=== PATIENT | female | born 1930 | race Caucasian/White ===

== ENCOUNTER 2019-11-17 12:35 | Outpatient (RCR) | payer MEDICARE, OTHER ==
[~2019-11-17] VITALS: Ht 160 cm; Wt 45.4 kg
[2019-11-19] MEDS ORDERED: Lidocaine 1% MPF 10mg/ml 5ml INJ ONE (17:00)
== END 2019-11-20 | disposition home or self-care (01) ==
LOC: WCC 12:35
DX: L89.114 Pressure ulcer of right upper back, stage 4 (principal); R64 Cachexia; M40.14 Other secondary kyphosis, thoracic region; I10 Essential (primary) hypertension; F32.9 Major depressive disorder, single episode, unspecified
CPT/HCPCS: 11043; 87070; 87181; 87205

== ENCOUNTER 2019-11-24 13:22 | Outpatient (RCR) | payer MEDICARE, OTHER ==
[~2019-11-24] VITALS: Ht 30.5 cm; Wt 0.5 kg
== END 2019-12-21 | disposition home or self-care (01) ==
LOC: WCC 13:22
DX: L89.114 Pressure ulcer of right upper back, stage 4 (principal); R64 Cachexia; M40.14 Other secondary kyphosis, thoracic region; I10 Essential (primary) hypertension; F32.9 Major depressive disorder, single episode, unspecified; Z79.899 Other long term (current) drug therapy
CPT/HCPCS: 11043; 97605

== ENCOUNTER 2019-12-01 10:51 | Outpatient (CLI) | payer MEDICARE, OTHER ==
[~2019-12-01] VITALS: Ht 147.3 cm; Wt 45.4 kg
[~2019-12-01 10:51] MED LIST: Heparin1,000 units/500ml Premix(Conc:2 units/ml) INJ PRN; Lidocaine 1% Plain 30 ml INJ PRN
--- NOTE | 2019-12-01 13:30 | NUR ---
RADIOLOGY NOTE: RIGHT UPPER EXTREMITY PICC PLACED.
--- NOTE | 2019-12-01 13:50 | Pre-Procedure Note/Attestation ---
Pre-Procedure Note/Attestation Complete Prior to Procedure Planned Procedure: not applicable Procedure Narrative: PICC Indications for Procedure Pre-Operative Diagnosis: osteomyelitis Attestation I attest that I discussed the nature of the procedure; its benefits; risks and complications; and alternatives (and the risks and benefits of such alternatives ), prior to the procedure, with the patient (or the patient's legal commercial representative). I attest that, if there was a reasonable possibility of needing a blood transfusion, the patient (or the patient's legal commercial representative) was given the [facility] standardized written summary, pursuant to the [place] Blood Safety Act ([place] Health and Safety Code # 1645, as amended). I attest that I re-evaluated the patient just prior to the surgery and that there has been no change in the patient's H&P, except as documented below: William Guzman MD Dec 01, 2019 13:50
--- NOTE | 2019-12-01 13:51 | Brief Operative Note ---
Immediate Post Operative Note Operative Note Pre-op Diagnosis: osteomyelitis Procedure: R arm midline Post-op Diagnosis: same as pre-op Findings: other - central venoocclusive disease, had to place mid line Surgeon: Negro Walton Anesthesia: local Specimen: none Complications: none Fluids: none Implant(s) used?: No William Walton MD Dec 01, 2019 13:51
--- NOTE | 2019-12-01 16:11 | Diagnostic Imaging Report ---
Indication: Open wound on right side of ribs, suspect osteomyelitis Technique: Axial, coronal, and sagittal STIR and T1 images obtained of the right ribs in the region of the open wound Comparison: none Findings: A marker zuluaga an open wound in the posterior inferior right chest wall. Exam is very limited, due to inherently limited spatial resolution as well as motion artifact. Areas of increased STIR signal are seen within the chest wall. These appear to be more likely surrounding rather than within the ribs, although this is difficult to state for certain. The ribs are insufficiently well delineated to assess whether any of the abnormal signal Impression: Very limited exam, as described. Unable to adequately assess for the presence of acute osteomyelitis adjacent to the open wound. There is some fluid in the area which appears to be extraosseous but this cannot be stated for certain. Recommend bone scan for further evaluation as this would be more sensitive and specific for the presence or absence of acute osteomyelitis. Plain radiographs of the affected area should also be obtained at the same time.
--- NOTE | 2019-12-02 09:04 | Diagnostic Imaging Report ---
Indications: Needs long-term IV access Technique: Ultrasound confirms patent compressible right brachial vein. Total sterile technique, including sterile probe cover and sterile gel, hat, mask, sterile gown, large sterile drape, and preparation with 2% chlorhexidine utilized. Local anesthesia with 1% lidocaine. Under real-time ultrasound guidance, puncture brachial vein using 21-gauge needle, documented and archived, passage 0.018 guidewire under direct fluoroscopy, which would only pass into the axilla and not beyond. 4 Nepalese peel-away sheath was placed, through which was passed a Kumpe catheter and a hydrophilic guidewire. Attempts made at crossing the axilla, unsuccessful. 4 [place] Bard dual-lumen power PICC cut to 50 cm. It was inserted through the peel-away sheath. Peel-away sheath and guidewire removed. Catheter fixed to the skin. Both catheter ports aspirated and flushed. Patient tolerated procedure well, without immediate complication. Digital radiograph documents satisfactory catheter tip position, at the level of the axillary vein. Total fluoroscopy time 123 seconds. 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 Therefore, catheter was cut short, and is suitable for use as a midline
== END 2019-12-01 12:51 | disposition home or self-care (01) ==
LOC: MRI 10:51
DX: M86.9 Osteomyelitis, unspecified (principal); B99.9 Unspecified infectious disease
CPT/HCPCS: 36569; 71550; 76937; J1644; J2001

== ENCOUNTER 2019-12-22 13:36 | Outpatient (RCR) | payer MEDICARE, OTHER | END 2020-01-20 | disposition home or self-care (01) | LOC: WCC 13:36 | DX: L89.114 Pressure ulcer of right upper back, stage 4 (principal); R64 Cachexia; M40.14 Other secondary kyphosis, thoracic region; I10 Essential (primary) hypertension; F64.9 Gender identity disorder, unspecified; Z79.899 Other long term (current) drug therapy | CPT/HCPCS: 11043; 97605 ==

== ENCOUNTER 2020-02-09 11:24 | Outpatient (RCR) | payer MEDICARE, OTHER | END 2020-02-20 | disposition home or self-care (01) | LOC: WCC 11:24 | DX: L89.114 Pressure ulcer of right upper back, stage 4 (principal); R64 Cachexia; M40.14 Other secondary kyphosis, thoracic region; I10 Essential (primary) hypertension; Z79.899 Other long term (current) drug therapy | CPT/HCPCS: 11043 ==

== ENCOUNTER 2020-02-23 11:09 | Outpatient (RCR) | payer MEDICARE, OTHER | END 2020-03-21 | disposition home or self-care (01) | LOC: WCC 11:09 | DX: L89.114 Pressure ulcer of right upper back, stage 4 (principal); L89.90 Pressure ulcer of unspecified site, unspecified stage; R64 Cachexia; L98.491 Non-pressure chronic ulcer of skin of other sites limited to breakdown of skin; M40.14 Other secondary kyphosis, thoracic region; I10 Essential (primary) hypertension; F64.9 Gender identity disorder, unspecified; Z79.899 Other long term (current) drug therapy | CPT/HCPCS: 11043 ==

== ENCOUNTER 2020-03-22 08:12 | Outpatient (RCR) | payer MEDICARE, OTHER | END 2020-04-21 | disposition home or self-care (01) | LOC: WCC 08:12 | DX: L89.114 Pressure ulcer of right upper back, stage 4 (principal); R64 Cachexia; M40.14 Other secondary kyphosis, thoracic region; Z79.899 Other long term (current) drug therapy; L98.491 Non-pressure chronic ulcer of skin of other sites limited to breakdown of skin; L89.90 Pressure ulcer of unspecified site, unspecified stage; I10 Essential (primary) hypertension; F32.9 Major depressive disorder, single episode, unspecified | CPT/HCPCS: 11042; G0463 ==